=== PATIENT | female | born 1960 | race Caucasian/White ===

== ENCOUNTER 2023-05-11 17:34 | Emergency (ER) | payer BC ==
--- NOTE | 2023-05-11 18:38 | ED Physician Documentation ---
History of Present Illness - Stated complaint Stated Complaint: RT LEG PX - Chief complaint Chief Complaint: Ext Problem - History obtained from History obtained from: Patient - History of Present Illness Pain level max: 3 Pain level now: 3 - Additonal information Additional information: 62-year-old female presents to the emergency department with right leg pain. She was seen at the walk-in clinic earlier today and sent here for ultrasound to rule out DVT as she recently drove here from [place]. Most of the pain is behind the right knee. No significant swelling. Worse with movement, better with rest. No history of blood clots. Not on blood thinners. Review of Systems Constitutional: denies: Fever, Chills Cardiac: denies: Chest pain / pressure, Palpitations Respiratory: denies: Dyspnea, Cough, Wheezing GI: denies: Vomiting, Diarrhea PD PAST MEDICAL HISTORY - Past Medical History Cardiovascular: Hypertension - Past Surgical History Ortho: Spine surgery - Allergies Allergies/Adverse Reactions: Allergies Allergy/AdvReac Type Severity Reaction Status Date / Time No Known Drug Allergies Allergy Verified 05/11/23 17:59 - Social History Does the pt smoke?: No Smoking Status: Never smoker PD ED PE NORMAL - Vitals Vital signs reviewed: Yes - General General: Alert and oriented X 3, No acute distress - HEENT HEENT: Moist mucous membranes - Neck Neck: Supple, no meningeal sign - Derm Derm: Warm and dry - Extremities Extremities: Other (Mild tenderness to palpation on the posterior aspect of the right knee. No significant swelling or calf tenderness. No skin changes. Neurovascular intact. Otherwise normal examination of the right lower extremity.) - Neuro Neuro: Alert and oriented X 3 - Psych Psych: Normal mood, Normal affect Results - Vitals Vitals: Vital Signs - 24 hr 05/11/23 05/11/23 17:54 18:59 Temperature 36.7 C 36.7 C Heart Rate 99 82 Respiratory 18 18 Rate Blood Pressure 167/78 H 129/44 L O2 Saturation 100 98 Oxygen O2 Source Room air - Rads (name of study) duplex us RLE Relevant Findings:: Final report received, See rad report PD Medical Decision Making - ED course Complexity details: reviewed results, re-evaluated patient, considered differential, d/w patient ED course: 62-year-old female with right lower extremity pain behind the right knee after a long drive. No acute findings on ultrasound of DVT. She does have a Etienne's cyst. Likely the cause of her pain. Will have her follow-up with her doctor for further care. Patient did request a dose of Toradol and this was given to her. Patient counseled regarding signs and symptoms for which I believe and urgent re-evaluation would be necessary. Patient with good understanding of and agreement to plan and is comfortable going home at this time This document was made in part using voice recognition software. While efforts are made to proofread this document, sound alike and grammatical errors may occur. Departure - Departure Disposition: 01 Home, Self Care Clinical Impression: Bakers cyst Qualifiers: Laterality: right Qualified Code(s): M71.21 - Synovial cyst of popliteal space [Etienne], right knee Condition: Good Instructions: ED Cyst Etienne Follow-Up: your,doctor when you return home [Other] Comments: Your ultrasound does not show any evidence of DVT today. You do have a Etienne's cyst. You can follow-up with an orthopedist in [place] to have this addressed. You were given a dose of Toradol tonight. Forms: PCP List Discharge Date/Time: 05/11/23 20:00
[2023-05-11] MEDS ORDERED: KETOROLAC 60 MG/2 ML VIAL IM STA (19:38)
--- NOTE | 2023-05-11 19:40 | Ultrasound Report ---
PROCEDURE: Duplex Ext Veins Right INDICATIONS: leg pain TECHNIQUE: Real-time imaging, as well as color and pulse Doppler interrogation, were performed of the lower extr emity deep veins from the inguinal ligament to the popliteal fossa. Attempted visualization of the ca lf veins was performed. COMPARISON: None. FINDINGS: The deep veins are normally compressible, and free of intraluminal thrombus. Color and pu lse Doppler demonstrate normal phasic intraluminal flow. There is normal augmentation response to di stal compression maneuver. 3.3 x 1.4 x 3.2 cm cystic structure is seen in medial aspect of posterior fossa. 5.9 x 1.1 x 2.9 cm fluid collection is noted in lateral aspect of right knee joint communicat ing with the right knee joint space. IMPRESSION: 1. No evidence of DVT in visualized right lower extremity veins. 2. Popliteal cyst as above. 3. Fluid collection along posterior lateral aspect of right knee communicating with right knee joint space as described above. Reviewed by: Omid Villalta MD on 05/11/2023 7:39 PM PST Approved by: Omid Villalta MD on 05/11/2023 7:39 PM PST Station ID: [id number]
[2023-05-11 20:07] VITALS: BP 129/44; O2SAT 98
== END 2023-05-11 20:00 | disposition home or self-care (01) ==
LOC: ED 17:34
DX: M71.21 Synovial cyst of popliteal space [Baker], right knee (principal); I10 Essential (primary) hypertension
CPT/HCPCS: 96372; 99283; 99284